=== PATIENT | male | born 2000 | race Two or more races ===

== ENCOUNTER 2021-10-03 20:32 | Emergency (ER) | payer OTHER ==
[~2021-10-03] VITALS: Ht 170.2 cm; Wt 63.5 kg
--- NOTE | 2021-10-03 21:17 | NUR ---
AFTER BEING TRIAGED. PATIENT WAS PLACED IN HALLWAY DUE TO NO BEDS AVAILABLE. DR BRITO INTO EVAL PATIENT.
[2021-10-03] MEDS: ACETAMINOPHEN 325 MG TABLET PO ONE (22:03)
[2021-10-03] MEDS ORDERED: ACETAMINOPHEN 325 MG TABLET ONE (22:11)
[2021-10-03 23:05] VITALS: BP 133/77
--- NOTE | 2021-10-03 23:05 | NUR ---
Patient discharged to home in stable condition. Written and verbal after care instructions given. Patient verbalizes understanding of instructions. Stressed follow up or return to ER for worsening s/s.
== END 2021-10-03 23:06 | disposition home or self-care (01) ==
LOC: ER 20:55
DX: S62.112A Displaced fracture of triquetrum [cuneiform] bone, left wrist, initial encounter for closed fracture (principal); X50.9XXA Other and unspecified overexertion or strenuous movements or postures, initial encounter; Y92.89 Other specified places as the place of occurrence of the external cause; M25.532 Pain in left wrist
CPT/HCPCS: 73090; 73110; A4663

== ENCOUNTER 2022-02-28 09:34 | Emergency (ER) | payer OTHER ==
[~2022-02-28] VITALS: Ht 172.7 cm; Wt 68.0 kg
--- NOTE | 2022-02-28 09:44 | NUR ---
Dr Rodriguez at the bedside for MSE.
[2022-02-28] MEDS ORDERED: PRED50TA PO (10:26)
[2022-02-28] MEDS ORDERED: ACET-73 PO (10:26)
[2022-02-28 10:39] VITALS: BP 112/70
== END 2022-02-28 10:40 | disposition home or self-care (01) ==
LOC: ER 09:34
DX: S49.91XA Unspecified injury of right shoulder and upper arm, initial encounter (principal); G43.909 Migraine, unspecified, not intractable, without status migrainosus; Z79.899 Other long term (current) drug therapy; X58.XXXA Exposure to other specified factors, initial encounter; Y93.89 Activity, other specified; Y92.89 Other specified places as the place of occurrence of the external cause; Y99.8 Other external cause status
CPT/HCPCS: 73030; A4663

== ENCOUNTER 2022-12-20 15:30 | Emergency (ER) | payer OTHER ==
[~2022-12-20] VITALS: Ht 170.2 cm; Wt 70.3 kg
[~2022-12-20 15:30] MED LIST: ACET-73 PO; PRED50TA PO
[2022-12-20] MEDS ORDERED: IBUP-1957 PO (15:49)
[2022-12-20] MEDS ORDERED: CAPS1ADH5 TP (15:49)
--- NOTE | 2022-12-20 16:10 | NUR ---
PT WAS D/C'd TO HOME AFTER DR TRAMMELL EVALUATION. D/C INSTRUCTIONS GIVEN TO THE PT BY DR TRAMMELL.
[2022-12-20 16:12] VITALS: BP 129/69
== END 2022-12-20 16:12 | disposition home or self-care (01) ==
LOC: ER 15:30
DX: S39.012A Strain of muscle, fascia and tendon of lower back, initial encounter (principal); X50.0XXA Overexertion from strenuous movement or load, initial encounter; Y92.89 Other specified places as the place of occurrence of the external cause
CPT/HCPCS: A4663

== ENCOUNTER 2023-03-05 22:02 | Emergency (ER) | payer OTHER ==
[~2023-03-05] VITALS: Ht 170.2 cm; Wt 70.3 kg
[~2023-03-05 22:02] MED LIST changes: +CAPS1ADH5 TP; +IBUP-1957 PO
--- NOTE | 2023-03-05 22:35 | NUR ---
Patient walked into ER c/o being stung by a wasp 3 days ago on his left shoulder area. Came in for worsening pain.
--- NOTE | 2023-03-05 22:40 | NUR ---
Dr. Hill at bedside for MSE.
[2023-03-05] MEDS ORDERED: SULF1TAB48 PO (22:49)
[2023-03-05] MEDS ORDERED: CEPH500T PO (22:49)
[2023-03-05 22:54] VITALS: BP 126/83; O2SAT 99
--- NOTE | 2023-03-05 22:54 | NUR ---
Patient discharged to home in stable condition. Written and verbal after care instructions given. Patient verbalizes understanding of instructions. Stressed follow up or return to ER for worsening s/s. Patient ambulated out of the ER with steady gait. All belongings with patient.
== END 2023-03-05 22:55 | disposition home or self-care (01) ==
LOC: ER 22:04
DX: L03.114 Cellulitis of left upper limb (principal); M25.512 Pain in left shoulder; G43.909 Migraine, unspecified, not intractable, without status migrainosus; Z79.1 Long term (current) use of non-steroidal anti-inflammatories (NSAID); Z79.899 Other long term (current) drug therapy
CPT/HCPCS: A4663

== ENCOUNTER 2024-03-18 17:20 | Emergency (ER) | payer MEDICAID, OTHER ==
[~2024-03-18] VITALS: Ht 170.2 cm; Wt 70.3 kg
[~2024-03-18 17:20] MED LIST changes: +CEPH500T PO; +SULF1TAB48 PO
[2024-03-18 18:14] LABS: BASOPHILS % (AUTO) 0.3 % (0.0-2.0); EOSINOPHILS # (AUTO) 0.1 K/uL (0.0-0.7); EOSINOPHILS % (AUTO) 1.9 % (0.0-7.0); HEMATOCRIT 46.3 % (36.7-47.1); HEMOGLOBIN 15.7 g/dL (12.5-16.3); LYMPHOCYTES # (AUTO) 2.3 K/uL (0.8-4.8); LYMPHOCYTES % (AUTO) 34.6 % (20.5-51.5); MEAN CORPUSCULAR HEMOGLOBIN 31.3 uug (23.8-33.4); MEAN CORPUSCULAR HGB CONC 34 g/dL (32.5-36.3); MEAN CORPUSCULAR VOLUME 92.2 fL (73.0-96.2); MONOCYTES # (AUTO) 0.5 K/uL (0.1-1.30); NEUTROPHILS # (AUTO) 3.7 K/uL (1.8-8.9); NEUTROPHILS % (AUTO) 56.2 % (38.5-71.5); PLATELET COUNT (AUTO) 209 K/uL (152-348); RED BLOOD CELL COUNT(AUTO) 5.02 MIL/uL (4.06-5.63); RED CELL DISTRIBUTION WIDTH 12.9 % (12.1-16.2); WHITE BLOOD COUNT (AUTO) 6.5 K/uL (3.6-10.2)
[2024-03-18 18:22] LABS: CALCIUM 8.8 mg/dL (8.5-10.1); CREATININE 1.1 mg/dL (0.6-1.3); DIFFERENTIAL COMMENT 1; POTASSIUM 3.8 mmol/L (3.5-5.1)
[2024-03-18 18:28] LABS: ALBUMIN 4.4 g/dL (3.4-5.0); BILIRUBIN,DIRECT 0.2 mg/dL (0.0-0.2); BILIRUBIN,TOTAL 1.3 mg/dL (0.2-1.0); TOTAL PROTEIN, SERUM 7.8 g/dL (6.4-8.2)
[2024-03-18 22:30] VITALS: BP 122/78; TEMP 98; O2SAT 99
== END 2024-03-18 22:31 | disposition home or self-care (01) ==
LOC: ER 17:24
DX: R10.9 Unspecified abdominal pain (principal); G43.909 Migraine, unspecified, not intractable, without status migrainosus; Z79.899 Other long term (current) drug therapy
CPT/HCPCS: 36415; 74021; 83690; 85025; A4606; A4663